=== PATIENT | male | born 1990 | race Caucasian/White ===

== ENCOUNTER → 2023-08-01 11:44 | Outpatient (CLI) | payer OTHER, SELFPAY ==
--- NOTE | 2023-08-01 11:55 | DI.RAD.S_ITS ---
PROCEDURE: XR LUMBAR SPINE 2-3V INDICATIONS: SPONDYLOSIS TECHNIQUE: 3 views of the lumbar spine were acquired. COMPARISON: None. FINDINGS: Bones: 5 [id number] vertebrae are present. There is very mild leftward curvature centered at L3-4 level. Loss of disc height and degenerative endplate changes are noted at L4-5 and L5-S1 levels. No vertebral body compression fractures. No suspicious bony lesions. Soft tissues: Overlying bowel gas pattern is normal. No suspicious soft tissue calcifications. IMPRESSION: [id number] degenerative disc disease in lower lumbar spine. No acute compression fracture or significant spondylolisthesis. Very mild levoscoliosis as above. Dictated by: Kodi Escalante M.D. on 08/01/2023 at 14:15 Approved by: Kodi Escalante M.D. on 08/01/2023 at 14:16
== END ==
LOC: RAD 11:51
PROVIDERS: Referring Provider Chiropractor; Visit Provider Chiropractor
DX: M47.817 Spondylosis without myelopathy or radiculopathy, lumbosacral region (principal); M51.36 Other intervertebral disc degeneration, lumbar region
CPT/HCPCS: 72100